=== PATIENT | female | born 1980 | race Caucasian/White ===

== ENCOUNTER 2018-10-28 13:58 | Outpatient (CLI) | payer MEDICAID, SELFPAY ==
--- NOTE | 2018-10-28 15:35 | DI.US_ITS ---
Many abnormalities cannot be diagnosed. A normal exam does not exclude a congenital anomaly. Radiology No. LMP: Exam Date:10/28/18 [facility] wks days on EDC ([facility]) Confirmed: HISTORY: NON REACTIVE NST, POST DATES,CONFIRM GESTATIONAL AGE,048.0, PIETER PREDICTED GESTATIONAL AGE NUMBER 42.1 weeks with a range of 41.1 week to 43.1 weeks. 1 Determined by___1STUS___LMP__X_HISTORY/symptoms Info. pertaining to fetus # PLACENTA PRESENTATION Grade II Cephalic__X_ Anterior___Posterior___ Breech____ Right Left Transverse(head right___ Fundal__X_Low-lying___Previa___ Transverse(head left___ Varying BIOMETRY AMNIOTIC FLUID BPD: 98 mm 39.6 weeks Normal HC: 342 mm 39.3 weeks Oligo Polyhydramnios AC: 352 mm 39.1 weeks FL: 78 mm 39.4 weeks AMNIOTIC FLUID INDEX >26 WK CRL: mm weeks Cisterna Magna: mm CI: 88 RUQ:__0___LUQ___3.0 Cerebellum: cm EFW: 3762 grams Percentile RLQ:__3.7____LLQ__2.8 Total:___10.0 cms Composite AGE= 39.4 wks EDC by ____10/31/18 BIOPHYSICAL PROFILE ANATOMY IDENTIFIED SCORE 0/2 Heart: 4-Chamber___Rate:BPM_152____ LVOT: RVOT: Amniotic Fluid(>2cms)__2/2__ Stomach: Kidneys: Respirations (>30 secs)_0/2____ Bladder: Post. Fossa: Body Flex/Extension__2/2____ 3 vessel cord: Ventricles: cord insertion: Lips:____ Extremity Flex/Extension__2/2 spinal morphology: Nose: Total Score= 6/8 Palate: NS=not seen Limited OB ultrasound was performed. There are no priors for comparison. There is a single living intrauterine gestation. Estimated sonographic age is 39 weeks 4 days. The fetus is in the cephalic presentation. heart rate is 152 beats per minute. anatomic evaluation was not performed on this examination. The estimated weight is 3762 grams. Amniotic fluid index is 10 cm. The placenta is fundal and appears unremarkable. IMPRESSION: Single living intrauterine gestation. Estimated sonographic age is 39 weeks 4 days. BIOPHYSICAL PROFILE: There is a single intrauterine gestation in the cephalic presentation. Biophysical profile is 6 out of 8.
--- NOTE | 2018-10-28 17:06 | DI.VRAD_ITS ---
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 COMPARISON: US OB biophysical profile 10/28/2018 3:47 PM FINDINGS: GESTATION: Gestation: Single intrauterine gestation. Heart rate: 154 Presentation: cephalic Placenta: Unremarkable. No subchorionic bleed. Placenta is fundal. Head, face, and neck: No enlarged ventricles. face, and neck anatomy are obscured by position. Heart: Heart is obscured by position. Abdomen: Abdominal anatomy is obscured by position. Umbilical cord and insertion: Umbilical cord insertion is obscured by position. Spine: Spinal anatomy is obscured by position. Extremities: Extremities are obscured by position. BIOMETRY: Estimated gestational age: 39 weeks 4 days. Estimated due date: Estimated weight: 3762 g Biparietal diameter: Head circumference: Abdominal circumference: Femur length: 7.7 cm MATERNAL: Uterus: Unremarkable. Cervix: Unremarkable. IMPRESSION: Full term gestation with cephalic presentation. Dictated and Authenticated by: Kd Ricardo MD. Ordering:ELLYN Smith MD
--- NOTE | 2018-10-28 17:08 | DI.VRAD_ITS ---
EXAM: US Biophysical Profile Without Non-Stress Test EXAM DATE/TIME: 10/28/2018 4:14 PM CLINICAL HISTORY: 38 years old, female; Signs and symptoms; Other: Non-reactive stress test; TECHNIQUE: Imaging protocol: US biophysical profile without non-stress testing. COMPARISON: No relevant prior studies available. FINDINGS: Breathin/2 Gross body movements: 2/2 tone: 2/2 Qualitative amniotic fluid: 2/2 Presentation is cephalic IMPRESSION: Biophysical profile score is 6 out of 8. Dictated and Authenticated by: Kd Ricardo MD. Ordering:ELLYN Smith MD
== END 2018-10-28 14:18 ==
PROVIDERS: Visit Provider Obstetrics & Gynecology
DX: O48.0 Post-term pregnancy (principal); O09.33 Supervision of pregnancy with insufficient antenatal care, third trimester
CPT/HCPCS: 76815; 76816; 59025; 76819

== ENCOUNTER 2022-11-19 09:39 | Outpatient (CLI) | payer MEDICAID, SELFPAY ==
[2022-11-19 10:14] VITALS: BP 112/56; PULSE 108; TEMP 37
[2022-11-19 10:23] VITALS: BP 112/56; PULSE 108
[2022-11-19 11:15] LABS: ROM Plus Negative
[2022-11-19 11:45] LABS: Bilirubin Negative (Negative); Blood Negative (Negative); Clarity Clear (Clear); Glucose Negative (Negative); Ketones 15 mg/dL (Negative); Leukocyte Esterase Negative (Negative); Nitrite Negative (Negative); Specific Gravity 1.015 (1.005-1.025); Urobilinogen 0.2 mg/dL (Up to 0.2)
--- NOTE | 2022-11-19 12:14 | PDOC.NST_ITS ---
Date of service: 11/19/22 Time of Service: 12:14 NST Evaluation Reason for NST Reasons for Nonstress Test: LABOR Reason for NST Other: ?r/o ROM Gestational Age Gestational Age in Weeks and Days: 37 Weeks and 2Days Test and Monitor Explained Test/Monitor Explained: Test Explained, Monitor Explained and Patient Verbalized Understanding Vital Signs Blood Pressure: 112/56 Pulse: 108 Temperature: 98.6 F NST Information Date on Monitor: 11/19/22 Time on Monitor: 10:02 NST Evaluation Patient States Movement: Present FHR Baseline: 145 Variability: Moderate 6-25 bpm Accelerations: 15x15 Note Ultrasound Done: Presentation Presentation Results: vertex Coding for Presentation w/NST: Completed Exam. NST Note Note: Ramona presents with her at the center for evaluation of suspected rupture of membranes. She is a who has had her previous 7 babies at home. She is currently planning an unassisted home and has not received care. She reports that she is currently 37 weeks gestation. She reports a history of a previous 11 pound baby at home. She reports that [facility] and she called earlier with a request to be evaluated for Spontaneous rupture of membranes. She tested the fluid at home with nitrazine and the tape was blue. She denies leaki ng currently. Reactive NST obtained. ROM plus taken by RN. No evidence of pooling. Clean catch urine obtained for urine dip and culture. No evidence of contractions. Unable to confirm presentation by Leopolds so POCUS was performed which confirms vertex presentation. Ramona declines additional testing and GBS testing. She believes her Blood type is RH positive as she has never received rhogam. Daily temperature was recommended and she was instructed to call again if she experiences leaking of fluid again. Plan reviewed with Dr. Eric. NST Reviewed and Verified by: Rubina Garcia
[2022-11-19 12:23] VITALS: BP 112/56; PULSE 108; TEMP 37
== END 2022-11-19 11:42 ==
LOC: BCD 09:53 → NUR 10:08 → OBS 10:11
PROVIDERS: Visit Provider Advanced Practice Midwife
DX: O60.03 Preterm labor without delivery, third trimester (principal); Z3A.37 37 weeks gestation of pregnancy
CPT/HCPCS: 84112; 59025; 81003; 87086